=== PATIENT | female | born 1935 | race Caucasian/White ===

== ENCOUNTER 2021-11-10 09:18 | Observation (INO) ==
[2021-11-10] MEDS ORDERED: IOPAMIDOL 100 ML BOTTLE IV ONE (09:19)
--- NOTE | 2021-11-10 09:39 | Emergency Department Note ---
HPI General Chief complaint: Stroke Symptoms Stated complaint: Headache, Elevated Blood Pressure Time Seen by Provider: 11/10/21 09:30 Source: patient Mode of arrival: wheelchair Limitations: altered mental status History of Present Illness HPI Narrative: Narrative: 85 yo F w/ h/o AF on eliquis, CAD, hypothyroidism, depression, p/w ALOC and difficulty finding words. Per SNF staff she was noted to have onset of Sx at 8:30 (NB - initial report from SNF implied that LKW was the night prior but we later learned from SNF staff that it was in fact this AM that she had onset of SX). She herself has no complaints at this time other than some difficulty finding words w/ no apparent progression/alleviating/aggravating factors. Related Data Home Medications Medication Instructions Recorded Confirmed carvedilol 25 mg tablet 25 mg PO .COMPLEX 03/05/21 11/10/21 denosumab 60 mg/mL subcutaneous 60 mg SUBCUT .COMPLEX 03/05/21 11/10/21 syringe diclofenac sodium 1 % topical gel 4 g TOPICAL QID 03/05/21 11/10/21 multivitamin 1 tab PO .COMPLEX 03/05/21 11/10/21 levothyroxine 25 mcg tablet 25 mcg PO QDAY 09/29/21 11/10/21 fexofenadine 180 mg tablet 180 mg PO QDAY 11/10/21 11/10/21 Previous Rx's Medication Instructions Recorded atorvastatin 20 mg tablet 20 mg PO QHS #30 tab 05/17/21 amlodipine 2.5 mg tablet 2.5 mg PO QDAY #30 tab 08/10/21 acetaminophen 500 mg tablet 1,000 mg PO TID #90 tab 09/29/21 (Tylenol Extra Strength) sertraline 25 mg tablet 25 mg PO QDAY #60 tab 09/29/21 apixaban 5 mg tablet 5 mg PO BID #180 tab 10/05/21 latanoprost 0.005 % eye drops See Rx Instructions .ROUTE 10/07/21 .COMPLEX #2.5 milliliter furosemide 20 mg tablet See Rx Instructions .ROUTE 10/21/21 .COMPLEX #90 tab potassium chloride 10 mEq See Rx Instructions .ROUTE 11/05/21 tablet,extended .COMPLEX #30 tablet release(part/cryst) (Klor-Con M) Allergies Allergy/AdvReac Type Severity Reaction Status Date / Time Sulfa (Sulfonamide Allergy Unknown Hives Verified 11/10/21 09:47 Antibiotics) Review of Systems ROS ROS Narrative: Narrative: Limitations: ROS unobtainable due to patients medical condition [facility] Narrative Patient History Narrative: Narrative: Medical/Surgical/Family History All Active Problems (Updated 11/10/21 @ 14:47 by Brett Willis MD) Falls (Acute) Syncope (Acute) Osteoporosis (Chronic) Thyroid disorder (Chronic) Atrial fibrillation (Chronic) CAD S/P percutaneous coronary angioplasty (Chronic) CKD (chronic kidney disease) stage 3, GFR 30-59 ml/min (Chronic) Memory changes (Chronic) Physical deconditioning (Chronic) Ingrown toenail (Acute) Bilateral lower extremity edema (Chronic) Cervicalgia (Chronic) Cellulitis of finger of right hand (Acute) Medicare annual wellness visit, initial (Acute) Major depressive disorder (Acute) Aphasia (Acute) Acute delirium (Acute) Anemia (Chronic) Medical History Anemia Atrial fibrillation Bilateral lower extremity edema CAD S/P percutaneous coronary angioplasty Cervicalgia CKD (chronic kidney disease) stage 3, GFR 30-59 ml/min Falls Ingrown toenail Major depressive disorder Medicare annual wellness visit, initial Memory changes MMSE 19/30 (09/29/21) Osteoporosis Physical deconditioning Syncope Thyroid disorder Surgical History History of foot surgery (~2015) History of knee surgery (~2009) History of neck surgery (~2012) Family History Sister Breast cancer 2 Aunt Breast cancer 2 Social History Smoking Status: Never smoker Alcohol Intake Frequency: does not drink Substance Use: does not use Exam Narrative Narrative: Narrative: General Limitations: altered mental status General appearance: Present alert and in no apparent distress Head Head: Present atraumatic and normocephalic ENT ENT: Present normal oropharynx and mucous membranes moist Chest Chest: Present normal inspection and symmetric chest wall rise Respiratory Respiratory: Present normal lung sounds bilaterally; Absent accessory muscle use or decreased breath sounds Cardiovascular Cardiovascular: Present regular rate, normal rhythm, +S1, +S2 and other (2+ B/L radial pulses); Absent systolic murmur or diastolic murmur Adbominal Abdominal: Present soft and normal bowel sounds; Absent distention or tenderness Extremities Extremities: Absent pedal edema Neurological Neurological: Present alert, oriented X3 and other (NIHSS total 2. 1A - 0, 1B - 1 (mild confusion), 1C - 0, 2 - 0, 3 - 0, 4 - 0, 5A - 0, 5B - 0, 6A - 0, 6B - 0, 7 - 0, 8 - 0, 9 - 1, 10 - 0, 11 - 0. ) Psychiatric Psychiatric: Present normal affect Skin Skin: Present warm (WNL) and dry Course Vital Signs Vital signs: Vital Signs Temperature 97.7 F 11/10/21 09:19 Pulse Rate 73 11/10/21 09:19 Respiratory Rate 18 11/10/21 09:19 Blood Pressure 188/93 11/10/21 09:19 Pulse Oximetry (%) 98 11/10/21 09:19 Temperature 97.7 F 11/10/21 09:19 Pulse Rate 69 11/10/21 16:00 Respiratory Rate 20 11/10/21 14:56 Blood Pressure 144/106 11/10/21 15:48 Pulse Oximetry (%) 95 11/10/21 16:00 [facility] MDM Narrative Medical decision making narrative: Narrative: 85 yo F w/ h/o AF on eliquis, CAD, hypothyroidism, depression, p/w ALOC and difficulty finding words. DDX - CVA, seizure, PITCHING COACH infection, metabolic/electrolyte d/o, arrhythmia Pt presented stable, in NAD. There was no threat to her airway, no hypoglycemia, and she was taken to CT as part of a code stroke. CT was negative for bleed. I also checked CTA head/neck. EKG showed no ischemia, and labs were unremarkable. CTA head/neck showed NAD. Seizure was unlikely w/ no seizure like activity reported, no post-ictal state. Infectious pathology was unlikely w/ no local signs of infection, no meningeal signs, no fever, no leukocytosis. CMP was unremarkable. EKG showed no ishcemia or serious arrhythmia. Overall presentation was c/w acute ischemic CVA. 1046 I spoke w/ Dr Price w/ leti who recommended ASA 324mg, hold eliquis pending MRI, and that we admit for MRI and, further W/U. 1446 Dr Villegas accepted pt for admission. Lab Data Lab results reviewed: Yes I reviewed the patient's lab results. Result diagrams: 11/10/21 09:35 11/10/21 09:35 Labs: Lab Results 11/10/21 11/10/21 11/10/21 Range/Units 09:33 09:35 09:35 WBC 5.8 (4.5-11.0) K/mcL RBC 4.61 (3.59-5.38) M/mcL Hgb 13.2 (11.2-15.7) g/dL Hct 40.1 (34.1-44.9) % MCV 87.0 (80.0-100.0) fL MCH 28.6 (26.0-34.0) pg MCHC 32.9 (31.0-36.0) g/dL RDW 14.8 H (11.5-14.5) % Plt Count 295 (140-440) K/mcL MPV 9.6 (7.4-10.4) fL Neut % (Auto) 45.7 (38.0-78.0) % Lymph % (Auto) 35.5 (15.5-49.0) % [place] % (Auto) 14.8 H (1.0-12.0) % Eos % (Auto) 3.3 (0.0-7.0) % Baso % (Auto) 0.7 (0.0-2.0) % Lymph # (Auto) 2.06 (1.50-4.80) K/mcL [place] # (Auto) 0.86 (0.10-0.90) K/mcL Eos # (Auto) 0.19 (0.00-0.70) K/mcL Baso # (Auto) 0.04 (0.00-0.30) K/mcL Absolute Neutrophils 2.66 (1.80-8.00) K/mcL POC PT 17.2 H (11.9-14.5) sec PT 16.2 H (11.9-14.5) sec POC INR 1.5 H (0.8-1.2) INR 1.2 H (0.9-1.1) APTT 33.9 (20.0-37.0) sec Sodium 136 (133-145) mmol/L Potassium 4.0 (3.3-5.1) mmol/L Chloride 99 (96-108) mmol/L Carbon Dioxide 26 (22-30) mmol/L Anion Gap 11.0 (8.0-16.0) BUN 17 (8-23) mg/dL Creatinine 0.7 (0.6-1.1) mg/dL POC Creatinine 0.8 (0.6-1.2) mg/dL GFR Calculation 77 Glucose 89 (70-105) mg/dL Calcium 9.1 (8.6-10.4) mg/dL Total Bilirubin 0.7 (0.1-1.0) mg/dL AST 29 (<32) U/L ALT 25 (<40) U/L Alkaline Phosphatase 64 (39-117) U/L Troponin T (<0.03) ng/mL Total Protein 6.7 (5.9-8.4) gm/dL Albumin 4.5 (3.2-5.2) gm/dL Globulin 2.2 (2.2-3.7) gm/dL Albumin/Globulin Ratio 2.0 (1.0-2.3) TSH 1.43 (0.27-5.01) uIU/mL Thyroxine (T4) 7.4 (5.0-12.0) ug/dl Urine Color Urine Appearance (Clear) Urine pH (5.0-9.0) Ur Specific [place] (1.000-1.035) Urine Protein (Negative) mg/dL Urine Glucose (UA) (Negative) mg/dL Urine Ketones (Negative) mg/dL Urine Occult Blood (Negative) oscar/mcL Urine Nitrate (Negative) Urine Bilirubin (Negative) mg/dL Urine Urobilinogen mg/dL Ur Leukocyte Esterase (Negative) /uL Urine RBC (0-3) /hpf Urine WBC (0-4) /hpf Ur Squamous Epith Cells (0-4) /hpf Urine Bacteria (0) /hpf Ur Culture Indicated? 11/10/21 11/10/21 Range/Units 09:35 10:10 WBC (4.5-11.0) K/mcL RBC (3.59-5.38) M/mcL Hgb (11.2-15.7) g/dL Hct (34.1-44.9) % MCV (80.0-100.0) fL MCH (26.0-34.0) pg MCHC (31.0-36.0) g/dL RDW (11.5-14.5) % Plt Count (140-440) K/mcL MPV (7.4-10.4) fL Neut % (Auto) (38.0-78.0) % Lymph % (Auto) (15.5-49.0) % [place] % (Auto) (1.0-12.0) % Eos % (Auto) (0.0-7.0) % Baso % (Auto) (0.0-2.0) % Lymph # (Auto) (1.50-4.80) K/mcL [place] # (Auto) (0.10-0.90) K/mcL Eos # (Auto) (0.00-0.70) K/mcL Baso # (Auto) (0.00-0.30) K/mcL Absolute Neutrophils (1.80-8.00) K/mcL POC PT (11.9-14.5) sec PT (11.9-14.5) sec POC INR (0.8-1.2) INR (0.9-1.1) APTT (20.0-37.0) sec Sodium (133-145) mmol/L Potassium (3.3-5.1) mmol/L Chloride (96-108) mmol/L Carbon Dioxide (22-30) mmol/L Anion Gap (8.0-16.0) BUN (8-23) mg/dL Creatinine (0.6-1.1) mg/dL POC Creatinine (0.6-1.2) mg/dL GFR Calculation Glucose (70-105) mg/dL Calcium (8.6-10.4) mg/dL Total Bilirubin (0.1-1.0) mg/dL AST (<32) U/L ALT (<40) U/L Alkaline Phosphatase (39-117) U/L Troponin T < 0.01 (<0.03) ng/mL Total Protein (5.9-8.4) gm/dL Albumin (3.2-5.2) gm/dL Globulin (2.2-3.7) gm/dL Albumin/Globulin Ratio (1.0-2.3) TSH (0.27-5.01) uIU/mL Thyroxine (T4) (5.0-12.0) ug/dl Urine Color Yellow Urine Appearance Clear (Clear) Urine pH 7.0 (5.0-9.0) Ur Specific [place] 1.015 (1.000-1.035) Urine Protein Negative (Negative) mg/dL Urine Glucose (UA) Negative (Negative) mg/dL Urine Ketones Negative (Negative) mg/dL Urine Occult Blood Trace-intact A (Negative) oscar/mcL Urine Nitrate Negative (Negative) Urine Bilirubin Negative (Negative) mg/dL Urine Urobilinogen Normal mg/dL Ur Leukocyte Esterase Negative (Negative) /uL Urine RBC < 1 (0-3) /hpf Urine WBC < 1 (0-4) /hpf Ur Squamous Epith Cells 1 (0-4) /hpf Urine Bacteria None (0) /hpf Ur Culture Indicated? No ED POC Tests ED POC Tests: FAHAD - SARS Antigen Negative CC TIME Critical Care Time Attestation: Approximately 35 minutes of critical care time was used in order to assess and manage the high probability of imminent or life threatening deterioration to the PITCHING COACH which required my highest level of preparedness and interventions with frequent patient assessments. This time is excluding time spent on separately billable procedures. Discharge Plan Patient/Caregiver Discharge Instructions Pt seen by [employer] [facility]/PA only: No Clinical Impression: Aphasia, CAD S/P percutaneous coronary angioplasty, Atrial fibrillation, Acute delirium Patient Disposition: Xfer As Inpt ([facility]) Condition: Fair Follow up with: Milton Avina MD [Primary Care Provider] - Prescriptions: No Action atorvastatin 20 mg tablet 20 mg PO QHS Qty: 30 2RF amlodipine 2.5 mg tablet 2.5 mg PO QDAY Qty: 30 2RF apixaban 5 mg tablet 5 mg PO BID Qty: 180 1RF latanoprost 0.005 % drops See Rx Instructions .ROUTE .COMPLEX Qty: 2.5 0RF Dose Instruction: INSTILL 1 DROP INTO AFFECTED EYE(S) ONCE DAILY EVERY EVENING Rx Instructions: INSTILL 1 DROP INTO AFFECTED EYE(S) ONCE DAILY EVERY EVENING furosemide 20 mg tablet See Rx Instructions .ROUTE .COMPLEX Qty: 90 0RF Dose Instruction: TAKE 1 TABLET BY MOUTH ONCE DAILY Rx Instructions: TAKE 1 TABLET BY MOUTH ONCE DAILY potassium chloride [Klor-Con M10] 10 mEq tablet,ER particles/crystals See Rx Instructions .ROUTE .COMPLEX Qty: 30 2RF Dose Instruction: TAKE 1 TABLET BY MOUTH ONCE DAILY Rx Instructions: TAKE 1 TABLET BY MOUTH ONCE DAILY carvedilol 25 mg tablet 25 mg PO .COMPLEX 0RF Rx Instructions: 25 mg PO; must administer with a meal/food denosumab 60 mg/mL syringe 60 mg subcut .COMPLEX 0RF Rx Instructions: 60 mg subcut; diclofenac sodium 1 % gel 4 g topical QID 0RF Rx Instructions: apply to single knee, ankle, foot; for foot includes sole/toes/top of foot multivitamin Tablet 1 tab PO .COMPLEX 0RF Rx Instructions: 1 tab PO; levothyroxine 25 mcg tablet 25 mcg PO QDAY 0RF acetaminophen [Tylenol Extra Strength] 500 mg tablet 1,000 mg PO TID Qty: 90 3RF sertraline 25 mg tablet 25 mg PO QDAY Qty: 60 1RF fexofenadine [Giuliana] 180 mg Tablet 180 mg PO QDAY 0RF
--- NOTE | 2021-11-10 09:51 | Cat Scan Report ---
CLINICAL INFORMATION: Code stroke COMPARISON: None. TECHNIQUE: 2.5 mm helical slices were obtained in the skull base to vertex. Following reconstruction, axial reformatted images were reviewed at bone and parenchymal windows. The exam was performed using radiation dose optimization techniques including, but not limited to, automated exposure control, adjustment of the mA and/or kV according to patient size and use of iterative reconstruction technique. FINDINGS: The ventricles, sulci, fissures, and cisterns are symmetrically enlarged compatible with mild age-related atrophy. No extra-axial fluid collections are identified. Moderate patchy chronic ischemic changes, in the deep cerebral white matter, are expected for age. There is no hemorrhage, mass effect, or edema. Bone windows show significant bilateral benign hyperostosis in the calvaria. IMPRESSION: Mild atrophy and moderate chronic ischemic changes in the deep cerebral white matter-expected for age. No acute findings Interpreted and Authenticated by: Fred Ramey 11/10/21
[2021-11-10 09:53] LABS: POC Creatinine 0.8 mg/dL (0.6-1.2)
[2021-11-10 10:20] LABS: POC INR 1.5 (0.8-1.2); POC Pro Time 17.2 sec (11.9-14.5)
--- NOTE | 2021-11-10 10:44 | Cat Scan Report ---
CLINICAL INFORMATION: Code stroke COMPARISON: None. TECHNIQUE: 80 cc of Isovue-370 were injected intravenously , and using SmartPrep to maximize cerebral arterial opacification, 0.625 mm helical slices were obtained from the skull base through the cerebral vertex. Following reconstruction , sagittal, coronal and axial reformatted images were processed and reviewed at multiple windows and levels. 3D volume rendered and MIP images were acquired at a independent workstation. The exam was performed using radiation dose optimization techniques including, but not limited to, automated exposure control, adjustment of the mA and/or kV according to patient size and use of iterative reconstruction technique. FINDINGS: Moderate calcific plaque is seen within the cavernous segments of both intracranial internal carotid arteries resulting in mild approximately 50% stenoses. The remaining intracranial internal carotid, vertebral, basilar, anterior, middle and posterior cerebral arteries and their branches are well-opacified and normal in contour and caliber without significant stenosis, occlusion or other pathology. Superficial/deep cerebral veins and deep venous sinuses are widely patent IMPRESSION: No evidence of thrombosis or embolus. Calcific plaque in the cavernous segments of both intracranial carotid arteries resulting in mild 50% stenosis Interpreted and Authenticated by: Fred Ramey 11/10/21
--- NOTE | 2021-11-10 10:55 | Cat Scan Report ---
CLINICAL INFORMATION: Code stroke COMPARISON: None. TECHNIQUE: 80 cc of Isovue-300 were injected intravenously followed by 40 cc of normal saline flush. Using SmartPrep, 0.625 helical slices were obtained from the thoracic aortic arch through the [place] of [place]. Following reconstruction, 2.5 mm sagittal, coronal and axial reformatted images were processed. MIPS , 3-D volume rendering and CPR images were also constructed. The exam was performed using radiation dose optimization techniques including, but not limited to, automated exposure control, adjustment of the mA and/or kV according to patient size and use of iterative reconstruction technique. FINDINGS: The thoracic aortic arch is normal diameter with minimal intimal thickening and conventional aortic branching. The brachiocephalic, both subclavian, both common, internal and external carotid and both vertebral arteries are widely patent without significant abnormality. Only mild fibrofatty calcific plaque seen in the carotid bifurcations. No soft tissue abnormality. IMPRESSION: Normal exam Interpreted and Authenticated by: Fred Ramey 11/10/21
[2021-11-10 11:10] LABS: Basophils # (Auto) 0.04 K/mcL (0.00-0.30); Basophils % (Auto) 0.7 % (0.0-2.0); Eosinophils # (Auto) 0.19 K/mcL (0.00-0.70); Eosinophils % (Auto) 3.3 % (0.0-7.0); Hematocrit 40.1 % (34.1-44.9); Hemoglobin 13.2 g/dL (11.2-15.7); Lymphocytes # (Auto) 2.06 K/mcL (1.50-4.80); Lymphocytes % (Auto) 35.5 % (15.5-49.0); Mean Corpuscular HGB Conc 32.9 g/dL (31.0-36.0); Mean Platelet Volume 9.6 fL (7.4-10.4); Monocytes # (Auto) 0.86 K/mcL (0.10-0.90); Monocytes % (Auto) 14.8 % (1.0-12.0); Neutrophils % (Auto) 45.7 % (38.0-78.0); Platelet Count 295 K/mcL (140-440); RBC 4.61 M/mcL (3.59-5.38); Red Cell Distribution Width 14.8 % (11.5-14.5); WBC 5.8 K/mcL (4.5-11.0)
[2021-11-10 11:34] LABS: ALT/SGPT 25 U/L (<40); AST/SGOT 29 U/L (<32); Albumin 4.5 gm/dL (3.2-5.2); Alkaline Phosphatase 64 U/L (39-117); Bilirubin,Total 0.7 mg/dL (0.1-1.0); Blood Urea Nitrogen 17 mg/dL (8-23); Calcium 9.1 mg/dL (8.6-10.4); Carbon Dioxide 26 mmol/L (22-30); Chloride 99 mmol/L (96-108); Globulin 2.2 gm/dL (2.2-3.7); Glomerular Filtration Rate 77; Glucose 89 mg/dL (70-105); Thyroid Stimulating Hormone 1.43 uIU/mL (0.27-5.01)
[2021-11-10] MEDS ORDERED: ASPIRIN 81 MG TAB.CHEW CHEWED ONE (11:34)
[2021-11-10 11:42] LABS: Appearance,Urine Clear (Clear); Bilirubin,Urine Negative (Negative); Color,Urine Yellow; Culture Indicated,Urine No; Glucose,Urine (UA) Negative (Negative); Ketones,Urine Negative (Negative); Leukocyte Esterase,Urine Negative /uL (Negative); Nitrate,Urine Negative (Negative); Protein,Urine Negative (Negative); Specific Gravity,Urine 1.015 (1.000-1.035); Urine Blood Trace-intact ery/mcL (Negative); Urine RBC < 1 /hpf (0-3); Urine Squamous Epithelial Cell 1 /hpf (0-4); Urine WBC < 1 /hpf (0-4); Urobilinogen,Urine Normal
[2021-11-10 11:57] LABS: Partial Thromboplastin Time 33.9 sec (20.0-37.0)
[2021-11-10 12:05] LABS: T4 (Thyroxine) 7.4 ug/dl (5.0-12.0)
[2021-11-10 12:15] LABS: INR 1.2 (0.9-1.1); Prothrombin Time 16.2 sec (11.9-14.5)
--- NOTE | 2021-11-10 12:39 | EKG ---
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 Measurements Intervals [place] Rate: 76 P: [place]: QRS: -37 QRSD: 93 T: 25 QT: 383 QTc: 431 Interpretive Statements Atrial fibrillation Minimal ST depression, inferior leads Electronically Signed On 11-10-2021 12:38:55 PST by Fatmata Singleton D.O. /store/M0/[id number]
--- NOTE | 2021-11-10 15:04 | Internal Med History&Physical ---
HPI History of Present Illness Patient information: Note initiated : 11/10/21 at 3:01 pm Service Date, if different from initiated Date: [] Patient: Arcelia Singleton a 85 y/o F admitted on for Headache, Elevated Blood Pressure. Chief Complaint: [] History of present illness: Ms. Singleton is a 85 year old F Who resides on the assisted living side of [facility] presents the ED with high blood pressure headache and word finding difficulties. Last known normal was last night. CT with mild atrophy and moderate ischemic changes no acute. CTA head neck showed extracranial vessels patent showed intracranial carotid arteries 50% s tenosis. Patient known history of A. fib on Eliquis. Case discussed with stroke neurologist who recommended holding Eliquis and giving aspirin and obtaining MRI. Review of Systems: Difficult to obtain given patient's expressive aphasia PFSH PFSH All Active Problems (Updated 11/10/21 @ 14:47 by Brett Willis MD) Falls (Acute) Syncope (Acute) Osteoporosis (Chronic) Thyroid disorder (Chronic) Atrial fibrillation (Chronic) CAD S/P percutaneous coronary angioplasty (Chronic) CKD (chronic kidney disease) stage 3, GFR 30-59 ml/min (Chronic) Memory changes (Chronic) Physical deconditioning (Chronic) Ingrown toenail (Acute) Bilateral lower extremity edema (Chronic) Cervicalgia (Chronic) Cellulitis of finger of right hand (Acute) Medicare annual wellness visit, initial (Acute) Major depressive disorder (Acute) Aphasia (Acute) Acute delirium (Acute) Anemia (Chronic) Medical History Anemia Atrial fibrillation Bilateral lower extremity edema CAD S/P percutaneous coronary angioplasty Cervicalgia CKD (chronic kidney disease) stage 3, GFR 30-59 ml/min Falls Ingrown toenail Major depressive disorder Medicare annual wellness visit, initial Memory changes MMSE 19/30 (09/29/21) Osteoporosis Physical deconditioning Syncope Thyroid disorder Surgical History History of foot surgery (~2015) History of knee surgery (~2009) History of neck surgery (~2012) Family History Sister Breast cancer 2 Aunt Breast cancer 2 Social History marital status: smoking status: Never smoker alcohol intake frequency: does not drink substance use type: does not use MEDS/ALLERGIES Home Medications and Allergies Home Medications Medication Instructions Recorded Confirmed Type carvedilol 25 mg tablet 25 mg PO .COMPLEX 03/05/21 11/10/21 History denosumab 60 mg/mL subcutaneous 60 mg SUBCUT .COMPLEX 03/05/21 11/10/21 History syringe diclofenac sodium 1 % topical gel 4 g TOPICAL QID 03/05/21 11/10/21 History multivitamin 1 tab PO .COMPLEX 03/05/21 11/10/21 History atorvastatin 20 mg tablet 20 mg PO QHS #30 tab 05/17/21 11/10/21 Rx amlodipine 2.5 mg tablet 2.5 mg PO QDAY #30 tab 08/10/21 11/10/21 Rx acetaminophen 500 mg tablet 1,000 mg PO TID #90 tab 09/29/21 11/10/21 Rx (Tylenol Extra Strength) levothyroxine 25 mcg tablet 25 mcg PO QDAY 09/29/21 11/10/21 History sertraline 25 mg tablet 25 mg PO QDAY #60 tab 09/29/21 11/10/21 Rx apixaban 5 mg tablet 5 mg PO BID #180 tab 10/05/21 11/10/21 Rx latanoprost 0.005 % eye drops See Rx Instructions .ROUTE 10/07/21 11/10/21 Rx .COMPLEX #2.5 milliliter furosemide 20 mg tablet See Rx Instructions .ROUTE 10/21/21 11/10/21 Rx .COMPLEX #90 tab potassium chloride 10 mEq See Rx Instructions .ROUTE 11/05/21 11/10/21 Rx tablet,extended .COMPLEX #30 tablet release(part/cryst) (Klor-Con M) fexofenadine 180 mg tablet 180 mg PO QDAY 11/10/21 11/10/21 History Allergies Allergy/AdvReac Type Severity Reaction Status Date / Time Sulfa (Sulfonamide Allergy Unknown Hives Verified 11/10/21 09:47 Antibiotics) EXAM Constitutional Vitals: Temp Pulse Resp BP Pulse Ox 97.7 F 74 20 192/95 96 11/10/21 09:19 11/10/21 14:56 11/10/21 14:56 11/10/21 14:56 11/10/21 14:56 Exam: General: Alert, Awake, No acute Distress Eyes/N/T: EOMI, PERRL, Head/Neck: neck supple, normocephalic atraumatic CV: irreg irreg, No murmurs, normal s1/s2 Pulm: Clear b/l, no wheezing/rhonchi/rales Abd: soft, nontender, +BS x4 Ext: no clubbing/cyanosis/edema Neuro: Alert, moves all extremities, symmetrical strength b/l upper/lower, sensations intact b/l upper/lower, no pronator drift, expressive aphasia mild Skin: warm/dry DATA Data Completed and Pending Labs: Labs from last 24 hours 11/10/21 11/10/21 11/10/21 10:10 09:35 09:35 WBC RBC Hgb Hct MCV MCH MCHC RDW Plt Count MPV Neut % (Auto) Lymph % (Auto) [place] % (Auto) Eos % (Auto) Baso % (Auto) Lymph # (Auto) [place] # (Auto) Eos # (Auto) Baso # (Auto) Absolute Neutrophils POC PT PT POC INR INR APTT Sodium 136 Potassium 4.0 Chloride 99 Carbon Dioxide 26 Anion Gap 11.0 BUN 17 Creatinine 0.7 POC Creatinine 0.8 GFR Calculation 77 Glucose 89 Calcium 9.1 Total Bilirubin 0.7 AST 29 ALT 25 Alkaline Phosphatase 64 Troponin T < 0.01 Total Protein 6.7 Albumin 4.5 Globulin 2.2 Albumin/Globulin Ratio 2.0 TSH 1.43 Thyroxine (T4) 7.4 Urine Color Yellow Urine Appearance Clear Urine pH 7.0 Ur Specific [place] 1.015 Urine Protein Negative Urine Glucose (UA) Negative Urine Ketones Negative Urine Occult Blood Trace-intact A Urine Nitrate Negative Urine Bilirubin Negative Urine Urobilinogen Normal Ur Leukocyte Esterase Negative Urine RBC < 1 Urine WBC < 1 Ur Squamous Epith Cells 1 Urine Bacteria None Ur Culture Indicated? No 11/10/21 11/10/21 09:35 09:33 WBC 5.8 RBC 4.61 Hgb 13.2 Hct 40.1 MCV 87.0 MCH 28.6 MCHC 32.9 RDW 14.8 H Plt Count 295 MPV 9.6 Neut % (Auto) 45.7 Lymph % (Auto) 35.5 [place] % (Auto) 14.8 H Eos % (Auto) 3.3 Baso % (Auto) 0.7 Lymph # (Auto) 2.06 [place] # (Auto) 0.86 Eos # (Auto) 0.19 Baso # (Auto) 0.04 Absolute Neutrophils 2.66 POC PT 17.2 H PT 16.2 H POC INR 1.5 H INR 1.2 H APTT 33.9 Sodium Potassium Chloride Carbon Dioxide Anion Gap BUN Creatinine POC Creatinine GFR Calculation Glucose Calcium Total Bilirubin AST ALT Alkaline Phosphatase Troponin T Total Protein Albumin Globulin Albumin/Globulin Ratio TSH Thyroxine (T4) Urine Color Urine Appearance Urine pH Ur Specific [place] Urine Protein Urine Glucose (UA) Urine Ketones Urine Occult Blood Urine Nitrate Urine Bilirubin Urine Urobilinogen Ur Leukocyte Esterase Urine RBC Urine WBC Ur Squamous Epith Cells Urine Bacteria Ur Culture Indicated? A/P Narrative A/P Narrative: A: *Stroke-like symptoms, expressive aphasia: -ABCD=5 *Afib: on eliquis/BB *CAD: on statin *HTN/HLD: *CKD II: *Hypothyroidism: *Depression: P: -Permissive HTN 24-48 hours -MRI, echo pending -per stroke neurologist>ASA 325 (hold eliquis & restart 4-14 days depending on stroke size via MRI) -statin -NPO until seen by ST -neurochecks -pt/ot/stT -ppx: lovenox Time Spent With Patient Time: Total time spent is greater than 50% in coordination of care (as documented) at patient's floor/unit and/or counseling patient: QUALITY Stroke Symptom Onset Unknown: Yes
--- NOTE | 2021-11-10 16:14 | Magnetic Resonance Report ---
CLINICAL INFORMATION: Acute CVA COMPARISON: CT 11/10/2021. TECHNIQUE:Sagittal T1 FLAIR, T2 FLAIR propeller,, diffusion, ADC were acquired. FINDINGS: The ventricles, sulci, fissures and cisterns are symmetrically enlarged compatible with mild age-related atrophy-no extra-axial fluid collection or mass appreciated. Extensive chronic ischemic changes in the cerebral white matter appreciated. No regions of restricted diffusion to suggest an acute infarct. No hemorrhage or mass effect. IMPRESSION: Mild atrophy and chronic ischemic changes. The cerebral white matter expected for age. No evidence of acute infarct or hemorrhage. Interpreted and Authenticated by: Fred Ramey 11/10/21
[2021-11-10] MEDS ORDERED: MAGNESIUM SULFATE 2 GM/50 ML BAG IV PRN (17:37)
[2021-11-10] MEDS ORDERED: IPRATROPIUM/ALBUTEROL 3 ML AMPUL.NEB NEB PRN (17:37)
[2021-11-10] MEDS ORDERED: SENNOSIDES 1 TABLET PO PRN (17:37)
[2021-11-10] MEDS ORDERED: POTASSIUM CHLORIDE 40 MEQ in DEXTROSE 5% IN WATER 500 ML IV PRN (17:37)
[2021-11-10] MEDS ORDERED: POLYETHYLENE GLYCOL 3350 17 GM PACKET PO PRN (17:37)
[2021-11-10] MEDS ORDERED: POTASSIUM CHLORIDE 20 MEQ TABLET PO PRN ×2 (17:37)
[2021-11-10] MEDS ORDERED: LABETALOL 5 MG/ML ML IV PRN (17:37)
[2021-11-10] MEDS ORDERED: ONDANSETRON 4 MG/2 ML VIAL IV PRN (17:37)
[2021-11-10] MEDS ORDERED: DICLOFENAC 1% TOPICAL PRN (18:05)
[2021-11-10] MEDS: 0.9 % SODIUM CHLORIDE 1,500 ML IV SCH (19:39)
[2021-11-10] MEDS ORDERED: ATORVASTATIN 20 MG TABLET PO SCH (21:00)
[2021-11-10] MEDS ORDERED: LATANOPROST OPHTH DROPS 2.5ML BOTTLE OU SCH (21:00)
[2021-11-10] MEDS: ACETAMINOPHEN 500 MG TABLET PO PRN (21:54)
[2021-11-10] MEDS: DOCUSATE SODIUM 100 MG CAPSULE PO SCH (21:54)
[2021-11-10] MEDS: 0.9 % SODIUM CHLORIDE 10 ML SYRINGE IV SCH (21:55)
[2021-11-11] MEDS: 0.9 % SODIUM CHLORIDE 10 ML SYRINGE IV SCH ×2 (06:05→14:57)
[2021-11-11] MEDS: ACETAMINOPHEN 500 MG TABLET PO PRN (07:10)
[2021-11-11] MEDS ORDERED: LABETALOL 5 MG/ML ML IV PRN (07:26)
--- NOTE | 2021-11-11 07:26 | Internal Med Progress Note ---
SUBJECTIVE Subjective Patient information: Note initiated : 11/11/21 at 7:22 am Service Date, if different from initiated Date: [] Patient: Arcelia Singleton a 85 y/o F admitted on 11/10/21 for Headache, Elevated Blood Pressure. Chief Complaint: [] Interval history: History of present illness: Ms. Singleton is a 85 year old F Who resides on the assisted living side of [facility] presents the ED with high blood pressure headache and word finding difficulties. Last known normal was last night. CT with mild atrophy and moderate ischemic changes no acute. CTA head neck showed extracranial vessels patent showed intracranial carotid arteries 50% stenosis. Patient known history of A. fib on Eliquis. Case discussed with stroke neurologist who recommended holding Eliquis and giving aspirin and obtaining MRI. 2/3 Complains of right-sided headache. Speech relatively clear. Patient severely hard of hearing. MRI showed mild atrophy and chronic ischemic changes but did not find any acute infarct or hemorrhage Review of systems: Unable obtain given severity of hearing impairment Constitutional Vitals: Vital Signs Temp Pulse Resp BP Pulse Ox 98.7 F 81 23 H 138/58 96 11/11/21 04:27 11/11/21 04:27 11/11/21 04:27 11/11/21 04:01 11/11/21 04:27 Period Temp Pulse Resp BP Sys/Street Pulse Ox Last 24 Hr 97.7 F-98.8 F 30-132 12-33 124-208/58-120 92-100 Intake and Output 11/10/21 11/11/21 11/11/21 21:59 05:59 13:59 Output Total 500 75 Balance -500 -75 Weight 66.253 kg Intake & Output: Intake & Output 11/10/21 11/11/21 11/11/21 21:59 05:59 13:59 Output Total 500 75 Balance -500 -75 Weight 66.253 kg Output: Urine Catheter Amount 500 75 Void Amount 0 Other: Urine Appearance Clear Clear Uretheral (Shaw) Clear Urine Color Pale Light Jen Uretheral (Shaw) Pale Urine Odor Normal Stool Size Large Small Stool Color Brown Brown Stool Consistency Soft # Bowel Movements 1 Exam: General: Alert, Awake, No acute Distress Eyes/N/T: EOMI Head/Neck: neck supple, CV: irreg irreg, No murmurs, Pulm: Clear b/l, no wheezing/rhonchi/rales Abd: soft, nontender, +BS x4 Ext: no clubbing/cyanosis/edema Neuro: Alert, moves all extremities, symmetrical strength b/l upper/lower, sensations intact b/l upper/lower, no pronator drift, expressive aphasia mild improved Skin: warm/dry OBJ DATA Labs CBC & Chem 7: 11/10/21 09:35 11/10/21 09:35 Labs: Abnormal Lab Results 11/10/21 11/10/21 11/10/21 10:10 09:35 09:33 RDW 14.8 H [place] % (Auto) 14.8 H POC PT 17.2 H PT 16.2 H POC INR 1.5 H INR 1.2 H Urine Occult Blood Trace-intact A Meds: Medications Acetaminophen (Acetaminophen 500 Mg Tablet) 1,000 mg PO TIDP PRN; Protocol PRN Reason: pain or headache Last Admin: 11/11/21 07:10 Dose: 1,000 mg Documented by: Albuterol/Ipratropium (Ipratropium/Albuterol 3 Ml Ampul.Neb) 3 ml NEB Q4HP PRN PRN Reason: Shortness Of Breath Atorvastatin Calcium (Atorvastatin 20 Mg Tablet) 20 mg PO HS [facility] Last Admin: 11/10/21 21:54 Dose: 20 mg Documented by: Docusate Sodium (Docusate Sodium 100 Mg Capsule) 100 mg PO BID [facility] Last Admin: 11/10/21 21:54 Dose: 100 mg Documented by: Enoxaparin Sodium (Enoxaparin 40 Mg/0.4 Ml Syringe) 40 mg SQ DAILY [facility] Potassium Chloride 40 meq/ (Dextrose) 520 mls @ 130 mls/hr IV UD PRN PRN Reason: Potassium < 3 Magnesium Sulfate (Magnesium Sulfate) 2 gm in 50 mls @ 50 mls/hr IV UD PRN PRN Reason: Magnesium </= 1.6 Sodium Chloride (Sodium Chloride 0.9%) 1,500 mls @ 84 mls/hr IV .[id number] [facility] Stop: 11/11/21 11:28 Last Admin: 11/10/21 19:39 Dose: 84 mls/hr Documented by: Labetalol HCl (Labetalol 5 Mg/Ml Ml) 0 mg IV Q2HP PRN PRN Reason: Hypertension Latanoprost (Latanoprost Ophth Drops 2.5ml Bottle) 1 gtt OU HS [facility] Last Admin: 11/10/21 21:55 Dose: Not Given Documented by: Levothyroxine Sodium (Levothyroxine 25 Mcg Tablet) 25 mcg PO ACB [facility] Last Admin: 11/11/21 06:57 Dose: 25 mcg Documented by: Ondansetron HCl (Ondansetron 4 Mg/2 Ml Vial) 4 mg IV Q4HP PRN PRN Reason: Nausea And Vomiting Pantoprazole Sodium (Pantoprazole 40 Mg Tablet) 40 mg PO QAMAC [facility] Last Admin: 11/11/21 06:57 Dose: 40 mg Documented by: Dicloefnac 4% (Topical Gel) 1 dose TOPICAL QIDP PRN PRN Reason: pain Polyethylene Glycol (Polyethylene Glycol 3350 17 Gm Packet) 17 gm PO DAILYP PRN PRN Reason: Constipation Potassium Chloride (Potassium Chloride 20 Meq Tablet) 40 meq PO UD PRN PRN Reason: Potssium is 3-3.5 Potassium Chloride (Potassium Chloride 20 Meq Tablet) 40 meq PO UD PRN PRN Reason: Potassium < 3 Senna (Sennosides 1 Tablet) 2 tab PO DAILYP PRN PRN Reason: Constipation Sertraline HCl (Sertraline 50 Mg Tablet) 25 mg PO DAILY [facility] Sodium Chloride (0.9 % Sodium Chloride 10 Ml Syringe) 10 ml IV Q8 [facility] Last Admin: 11/11/21 06:05 Dose: 10 ml Documented by: A/P Narrative A/P Narrative: A: *Stroke-like symptoms, expressive aphasia - TIA: -ABCD=5 -MRI mild atrophy/chronic ischemic changes, no acute infarct identified *Generalized weakness/deconditioning: *Afib: on eliquis/BB *CAD: on statin *HTN/HLD: *CKD II: *Hypothyroidism: *Depression: P: -Permissive HTN 24-48 hours -echo pending -per stroke neurologist>ASA 325 (hold eliquis & restart 4-14 days depending on stroke size via MRI) -statin -NPO until seen by ST neurochecks -pt/ot/stT -ppx: lovenox Time Spent With Patient Time: Total time spent is greater than 50% in coordination of care (as documented) at patient's floor/unit and/or counseling patient: QUALITY Stroke Onset of Symptoms Date: 11/10/21 Symptom Onset Unknown: Yes VTE Deep Vein Thrombosis/Pulmonary Embolism Present on Admission: No
[2021-11-11] MEDS ORDERED: LEVOTHYROXINE 25 MCG TABLET PO SCH (07:30)
[2021-11-11] MEDS ORDERED: PANTOPRAZOLE 40 MG TABLET PO SCH (07:30)
[2021-11-11] MEDS: 0.9 % SODIUM CHLORIDE 1,500 ML IV SCH (07:59)
[2021-11-11] MEDS ORDERED: BUTALB/ACETAMINOPHEN/CAFFEINE 1 TABLET PO PRN (08:56)
[2021-11-11] MEDS ORDERED: SERTRALINE 50 MG TABLET PO SCH (09:00)
[2021-11-11] MEDS ORDERED: ASPIRIN 325 MG ENTERIC COATED TABLET PO SCH (09:00)
[2021-11-11] MEDS ORDERED: ENOXAPARIN 40 MG/0.4 ML SYRINGE SQ SCH (09:00)
[2021-11-11] MEDS: DOCUSATE SODIUM 100 MG CAPSULE PO SCH (09:22)
--- NOTE | 2021-11-11 10:40 | Discharge Summary ---
Discharge Provider Provider Patient information: Note initiated : 11/11/21 at 10:39 am Service Date, if different from initiated Date: [] Patient: Arcelia Singleton 85 y/o F admitted on 11/10/21 for Headache, Elevated Blood Pressure. Chief Complaint: [] Date of admission: 11/10/21 17:36 Discharge date: 11/11/21 Primary care physician: Milton Avina MD Consults: 11/10/21 Consult to Physician [CONS] Stat Comment: Consulting Provider: Binu Villegas Reason For Exam: Physician to Consult Discharge Meds Discharge Medications Home Medications carvedilol 25 mg tablet 25 mg PO .COMPLEX 03/05/21 [History Confirmed 11/10/21 Last Taken Unknown] denosumab 60 mg/mL subcutaneous syringe 60 mg SUBCUT .COMPLEX 03/05/21 [History Confirmed 11/10/21 Last Taken Unknown] diclofenac sodium 1 % topical gel 4 g TOPICAL QID 03/05/21 [History Confirmed 11/10/21 Last Taken Unknown] multivitamin 1 tab PO .COMPLEX 03/05/21 [History Confirmed 11/10/21 Last Taken Unknown] atorvastatin 20 mg tablet 20 mg PO QHS #30 tab 05/17/21 [Rx Confirmed 11/10/21 Last Taken Unknown] acetaminophen 500 mg tablet (Tylenol Extra Strength) 1,000 mg PO TID #90 tab 09/29/21 [Rx Confirmed 11/10/21 Last Taken Unknown] levothyroxine 25 mcg tablet 25 mcg PO QDAY 09/29/21 [History Confirmed 11/10/21 Last Taken Unknown] sertraline 25 mg tablet 25 mg PO QDAY #60 tab 09/29/21 [Rx Confirmed 11/10/21 Last Taken Unknown] apixaban 5 mg tablet 5 mg PO BID #180 tab 10/05/21 [Rx Confirmed 11/10/21 Last Taken Unknown] latanoprost 0.005 % eye drops See Rx Instructions .ROUTE .COMPLEX #2.5 milliliter 10/07/21 [Rx Confirmed 11/10/21 Last Taken Unknown] furosemide 20 mg tablet See Rx Instructions .ROUTE .COMPLEX #90 tab 10/21/21 [Rx Confirmed 11/10/21 Last Taken Unknown] potassium chloride 10 mEq tablet,extended release(part/cryst) (Klor-Con M) See Rx Instructions .ROUTE .COMPLEX #30 tablet 11/05/21 [Rx Confirmed 11/10/21 Last Taken Unknown] fexofenadine 180 mg tablet 180 mg PO QDAY 11/10/21 [History Confirmed 11/10/21 Last Taken Unknown] amlodipine 2.5 mg tablet 5 mg PO QDAY #30 tab 11/11/21 [Rx Last Taken Unknown] COURSE Hospital Course Hospital course: Interval history: History of present illness: Ms. Singleton is a 85 year old F Who resides on the assisted living side of [facility] presents the ED with high blood pressure headache and word finding difficulties. Last known normal was last night. CT with mild atrophy and moderate ischemic changes no acute. CTA head neck showed extracranial vessels patent showed intracranial carotid arteries 50% stenosis. Patient known history of A. fib on Eliquis. Case discussed with stroke neurologist who recommended holding Eliquis and giving aspirin and obtaining MRI. 2/3 Complains of right-sided headache. Speech relatively clear. Patient severely hard of hearing. MRI showed mild atrophy and chronic ischemic changes but did not find any acute infarct or hemorrhage A: *Stroke-like symptoms, expressive aphasia - TIA: -ABCD=5 -MRI mild atrophy/chronic ischemic changes, no acute infarct identified *Generalized weakness/deconditioning: *Afib: on eliquis/BB *CAD: on statin *HTN/HLD: *CKD II: *Hypothyroidism: *Depression: Discharge diagnosis: TIA generalized weakness and deconditioning Secondary discharge diagnosis: A. fib CAD hypertension chronic kidney disease hypothyroidism depression Time Spent with Patient Time attestation: Total time spent providing and/or coordinating discharge services: Time spent: Greater than 30 minutes EXAM Constitutional Vitals: Temp Pulse Resp BP Pulse Ox 97.8 F 90 31 H 150/87 96 11/11/21 07:13 11/11/21 08:01 11/11/21 10:31 11/11/21 10:01 11/11/21 08:01 Discharge Data Data Completed and Pending Labs on day of discharge: Labs from last 24 hours 11/10/21 11/10/21 11/10/21 10:10 09:35 09:35 WBC RBC Hgb Hct MCV MCH MCHC RDW Plt Count MPV Neut % (Auto) Lymph % (Auto) [place] % (Auto) Eos % (Auto) Baso % (Auto) Lymph # (Auto) [place] # (Auto) Eos # (Auto) Baso # (Auto) Absolute Neutrophils PT INR APTT Sodium 136 Potassium 4.0 Chloride 99 Carbon Dioxide 26 Anion Gap 11.0 BUN 17 Creatinine 0.7 GFR Calculation 77 Glucose 89 Calcium 9.1 Total Bilirubin 0.7 AST 29 ALT 25 Alkaline Phosphatase 64 Troponin T < 0.01 Total Protein 6.7 Albumin 4.5 Globulin 2.2 Albumin/Globulin Ratio 2.0 TSH 1.43 Thyroxine (T4) 7.4 Urine Color Yellow Urine Appearance Clear Urine pH 7.0 Ur Specific [place] 1.015 Urine Protein Negative Urine Glucose (UA) Negative Urine Ketones Negative Urine Occult Blood Trace-intact A Urine Nitrate Negative Urine Bilirubin Negative Urine Urobilinogen Normal Ur Leukocyte Esterase Negative Urine RBC < 1 Urine WBC < 1 Ur Squamous Epith Cells 1 Urine Bacteria None Ur Culture Indicated? No 11/10/21 11/10/21 09:35 09:33 WBC 5.8 RBC 4.61 Hgb 13.2 Hct 40.1 MCV 87.0 MCH 28.6 MCHC 32.9 RDW 14.8 H Plt Count 295 MPV 9.6 Neut % (Auto) 45.7 Lymph % (Auto) 35.5 [place] % (Auto) 14.8 H Eos % (Auto) 3.3 Baso % (Auto) 0.7 Lymph # (Auto) 2.06 [place] # (Auto) 0.86 Eos # (Auto) 0.19 Baso # (Auto) 0.04 Absolute Neutrophils 2.66 PT 16.2 H INR 1.2 H APTT 33.9 Sodium Potassium Chloride Carbon Dioxide Anion Gap BUN Creatinine GFR Calculation Glucose Calcium Total Bilirubin AST ALT Alkaline Phosphatase Troponin T Total Protein Albumin Globulin Albumin/Globulin Ratio TSH Thyroxine (T4) Urine Color Urine Appearance Urine pH Ur Specific [place] Urine Protein Urine Glucose (UA) Urine Ketones Urine Occult Blood Urine Nitrate Urine Bilirubin Urine Urobilinogen Ur Leukocyte Esterase Urine RBC Urine WBC Ur Squamous Epith Cells Urine Bacteria Ur Culture Indicated? Discharge Plan Patient/Caregiver Discharge Instructions Activity: increase activity as tolerated Diet: Regular Diet Prescriptions: Continued atorvastatin 20 mg tablet 20 mg PO QHS Qty: 30 2RF apixaban 5 mg tablet 5 mg PO BID Qty: 180 1RF latanoprost 0.005 % drops See Rx Instructions .ROUTE .COMPLEX Qty: 2.5 0RF Dose Instruction: INSTILL 1 DROP INTO AFFECTED EYE(S) ONCE DAILY EVERY EVENING Rx Instructions: INSTILL 1 DROP INTO AFFECTED EYE(S) ONCE DAILY EVERY EVENING furosemide 20 mg tablet See Rx Instructions .ROUTE .COMPLEX Qty: 90 0RF Dose Instruction: TAKE 1 TABLET BY MOUTH ONCE DAILY Rx Instructions: TAKE 1 TABLET BY MOUTH ONCE DAILY potassium chloride [Klor-Con M10] 10 mEq tablet,ER particles/crystals See Rx Instructions .ROUTE .COMPLEX Qty: 30 2RF Dose Instruction: TAKE 1 TABLET BY MOUTH ONCE DAILY Rx Instructions: TAKE 1 TABLET BY MOUTH ONCE DAILY carvedilol 25 mg tablet 25 mg PO .COMPLEX 0RF Rx Instructions: 25 mg PO; must administer with a meal/food denosumab 60 mg/mL syringe 60 mg subcut .COMPLEX 0RF Rx Instructions: 60 mg subcut; diclofenac sodium 1 % gel 4 g topical QID 0RF Rx Instructions: apply to single knee, ankle, foot; for foot includes sole/toes/top of foot multivitamin Tablet 1 tab PO .COMPLEX 0RF Rx Instructions: 1 tab PO; levothyroxine 25 mcg tablet 25 mcg PO QDAY 0RF acetaminophen [Tylenol Extra Strength] 500 mg tablet 1,000 mg PO TID Qty: 90 3RF sertraline 25 mg tablet 25 mg PO QDAY Qty: 60 1RF fexofenadine 180 mg Tablet 180 mg PO QDAY 0RF Changed amlodipine 2.5 mg tablet 5 mg PO QDAY Qty: 30 2RF Follow Up Plan Follow up with: Milton Avina MD [Primary Care Provider] - Patient Disposition: Xfer Assisted Living Facility Prognosis: Fair Overall status at discharge: patient is progressing back to baseline Discharge Orders: Discharge Order (Routine); Ordered 11/11/21 [facility] Th[facility]/Pulmonary Embolism Present on Admission: No
[2021-11-12] MEDS ORDERED: FLU VACC QS2021-22(6MOS UP)/PF 60 MCG/0.5 ML SYRINGE IM ONE (10:00)
[2021-11-12] MEDS ORDERED: PNEUMOCOCCAL 23-VAL P-SAC VAC 0.5 ML SYRINGE IM ONE (10:00)
== END 2021-11-11 15:38 ==
LOC: ICU 09:18 → ED 09:18 → ICU 17:39
PROVIDERS: ADMIT Internal Medicine; ATTEND Internal Medicine